=== PATIENT | female | born 1945 | race Caucasian/White ===

== ENCOUNTER 2016-08-22 11:19 | Inpatient (IN) | payer OTHER ==
[~2016-08-22] VITALS: Ht 167.6 cm; Wt 115.0 kg
[~2016-08-22 11:19] MED LIST: IBUP800T24 PO; LEVO25TA6 PO; LIS5T PO; MEDR5TAB PO; MET25T PO; PAR20T PO; PIO30T PO; PRA25T PO; Pantoprazole Sodium Sesquihydr PO; ROPI0.5T PO; SUC1LQ PO
[2016-08-22] MEDS ORDERED: SODIUM CHLORIDE 0.9% 1,000 ML IV ONE (16:57)
[2016-08-22 17:50] LABS: Basophils # (auto) 0.1 uL; Basophils % (auto) 0.6 % (0.0-2.0); DEFINITIVE VIEW TRANSMISSION; Eosinophils # (auto) 0.1 uL; Eosinophils % (auto) 1.3 % (0.0-7.0); Hematocrit 31.6 % (36.0-46.0); Hemoglobin 10.2 g/dL (12.2-16.2); Lymphocytes # (auto) 0.9 uL; Mean Corpuscular Hemoglobin 24.7 pg (28.0-32.0); Mean Corpuscular Hgb Conc. 32.3 g/dL (32.0-36.0); Mean Corpuscular Volume 76.6 fL (80.0-100.0); Mean Platelet Volume 8.1 fL (7.4-10.4); Monocytes # (auto) 0.5 uL; Neutrophils # (auto) 7.5 uL; Neutrophils % (auto) 82.1 % (37.0-80.0); Platelet Count (auto) 430 10^3/uL (140-450); Red Cell Distribution Width 18.2 % (11.6-16.0); White Blood Cell 9.1 10^3/uL (4.4-10.8)
[2016-08-22 18:08] LABS: Partial Thromboplastin Time 35.7 sec (22.64-33.71)
[2016-08-22 18:10] LABS: Albumin 2.4 g/dL (3.4-5.0); BUN/Creatinine Ratio 14.1; Calcium 8.6 mg/dL (8.5-10.1); Potassium 3.1 mmol/L (3.5-5.1)
[2016-08-22 18:12] LABS: INR 1.25 (0.9-1.15); Prothrombin Time 12.9 sec (9.37-12.3)
[2016-08-22 18:13] LABS: Total Protein 6.9 g/dL (6.4-8.2)
[2016-08-22] MEDS ORDERED: POTASSIUM CHLORIDE 8 MEQ TAB PO ONE (19:00)
[2016-08-22] MEDS ORDERED: DEXTROSE (50%) 50ML SYRG IV PRN (19:00)
[2016-08-22] MEDS ORDERED: MORPHINE SULF INJ 2 MG/ML SYRINGE 1ML IV PRN ×2 (19:15)
[2016-08-22] MEDS ORDERED: NITROGLYCERIN 0.4 MG SL TAB SL PRN (19:15)
[2016-08-22] MEDS ORDERED: ACETAMINOPHEN 325 MG TAB PO PRN (19:15)
[2016-08-22] MEDS ORDERED: DOCUSATE SOD 100 MG CAP PO PRN (19:15)
[2016-08-22] MEDS ORDERED: CITALOPRAM HYDROBR 20 MG TAB PO ONE (19:30)
[2016-08-22] MEDS ORDERED: MULTIPLE VITAMIN TAB PO ONE (19:30)
[2016-08-22] MEDS ORDERED: LOSARTAN POTASSIUM 25 MG TAB PO ONE (19:30)
[2016-08-22] MEDS: ENOXAPARIN SOD 40 MG/0.4 ML SYRINGE SC SCH (20:34)
[2016-08-22 20:50] VITALS: BP 116/65
[2016-08-22] MEDS: HYDROcodone-ACET 5/325MG TAB PO PRN (20:57)
[2016-08-22 21:00] VITALS: BP 116/65
[2016-08-22] MEDS: Boost Glucose Control 8 Ounces PO SCH (22:00)
[2016-08-22] MEDS: SODIUM CHLOR 0.9% PF (SALINE LOCK) 10ML VIAL IV SCH (22:34)
[2016-08-22] MEDS: IBUPROFEN 600 MG TAB PO SCH (22:34)
[2016-08-22] MEDS: InsuLIN REG 1unit/0.01ml Soln (100units/ml) SC SCH (22:35)
[2016-08-22] MEDS: ACCU-CHEK COMFORT CURVE STRIP VI SCH (22:35)
[2016-08-22] MEDS: FAMOTIDINE 20 MG TAB PO SCH (22:35)
[2016-08-23] MEDS: HYDROcodone-ACET 5/325MG TAB PO PRN ×4 (05:16→21:32)
[2016-08-23] MEDS: IBUPROFEN 600 MG TAB PO SCH ×4 (05:31→21:40)
[2016-08-23] MEDS: SODIUM CHLOR 0.9% PF (SALINE LOCK) 10ML VIAL IV SCH ×3 (05:31→21:12)
[2016-08-23] MEDS: Boost Glucose Control 8 Ounces PO SCH ×4 (05:31→22:00)
[2016-08-23 05:41] VITALS: BP 99/42
[2016-08-23] MEDS: ACCU-CHEK COMFORT CURVE STRIP VI SCH ×4 (06:20→21:39)
[2016-08-23] MEDS: InsuLIN REG 1unit/0.01ml Soln (100units/ml) SC SCH ×4 (06:20→22:30)
[2016-08-23 06:39] LABS: Basophils # (auto) 0.1 uL; Basophils % (auto) 0.8 % (0.0-2.0); DEFINITIVE VIEW TRANSMISSION; Eosinophils # (auto) 0.2 uL; Eosinophils % (auto) 3.6 % (0.0-7.0); Hematocrit 27.5 % (36.0-46.0); Hemoglobin 9.2 g/dL (12.2-16.2); Lymphocytes # (auto) 0.7 uL; Lymphocytes % (auto) 10.6 % (10.0-50.0); Mean Corpuscular Hemoglobin 25.4 pg (28.0-32.0); Mean Corpuscular Hgb Conc. 33.4 g/dL (32.0-36.0); Mean Corpuscular Volume 76.1 fL (80.0-100.0); Mean Platelet Volume 8.1 fL (7.4-10.4); Monocytes # (auto) 0.5 uL; Monocytes % (auto) 7.2 % (0.0-12.0); Neutrophils % (auto) 77.8 % (37.0-80.0); Platelet Count (auto) 399 10^3/uL (140-450); Red Cell Distribution Width 18.2 % (11.6-16.0); White Blood Cell 6.5 10^3/uL (4.4-10.8)
[2016-08-23 07:26] LABS: Albumin 2.1 g/dL (3.4-5.0); BUN/Creatinine Ratio 17.6; Calcium 8.1 mg/dL (8.5-10.1)
[2016-08-23 07:29] LABS: Bilirubin, Total 0.5 mg/dL (0.2-1.0)
[2016-08-23 09:04] VITALS: BP 108/52
[2016-08-23] MEDS: LOSARTAN POTASSIUM 25 MG TAB PO SCH (10:00)
[2016-08-23] MEDS: CITALOPRAM HYDROBR 20 MG TAB PO SCH (10:32)
[2016-08-23] MEDS: MULTIPLE VITAMIN TAB PO SCH (10:34)
[2016-08-23] MEDS: FAMOTIDINE 20 MG TAB PO SCH ×2 (10:35→21:32)
[2016-08-23 12:00] VITALS: BP 106/60
[2016-08-23] MEDS ORDERED: POTASSIUM CHLORIDE 8 MEQ TAB PO ONE (13:30)
[2016-08-23] MEDS: ENOXAPARIN SOD 40 MG/0.4 ML SYRINGE SC SCH (17:46)
[2016-08-23 17:53] VITALS: BP_SYST 118; BP_SYST 121; BP_DIAS 50; BP_DIAS 52
[2016-08-23 18:36] VITALS: BP 116/56
[2016-08-23 19:25] LABS: BUN/Creatinine Ratio 12.4; Calcium 8.1 mg/dL (8.5-10.1)
[2016-08-23 22:00] VITALS: BP_SYST 104; BP_SYST 90; BP_DIAS 40; BP_DIAS 52
[2016-08-24 05:00] VITALS: BP_SYST 107; BP_SYST 88; BP_DIAS 44; BP_DIAS 55
[2016-08-24] MEDS: IBUPROFEN 600 MG TAB PO SCH ×4 (06:00→21:50)
[2016-08-24] MEDS: SODIUM CHLOR 0.9% PF (SALINE LOCK) 10ML VIAL IV SCH ×3 (06:00→21:51)
[2016-08-24] MEDS: Boost Glucose Control 8 Ounces PO SCH ×4 (06:00→21:51)
[2016-08-24] MEDS: ACCU-CHEK COMFORT CURVE STRIP VI SCH ×4 (07:00→22:00)
[2016-08-24] MEDS: InsuLIN REG 1unit/0.01ml Soln (100units/ml) SC SCH ×4 (07:00→21:54)
[2016-08-24 07:34] LABS: Basophils # (auto) 0 uL; Basophils % (auto) 0.5 % (0.0-2.0); DEFINITIVE VIEW TRANSMISSION; Eosinophils # (auto) 0.3 uL; Eosinophils % (auto) 4.6 % (0.0-7.0); Hematocrit 29.2 % (36.0-46.0); Hemoglobin 9.5 g/dL (12.2-16.2); Lymphocytes # (auto) 0.9 uL; Mean Corpuscular Hemoglobin 24.7 pg (28.0-32.0); Mean Corpuscular Hgb Conc. 32.5 g/dL (32.0-36.0); Mean Platelet Volume 8.3 fL (7.4-10.4); Monocytes # (auto) 0.6 uL; Monocytes % (auto) 8.4 % (0.0-12.0); Neutrophils # (auto) 4.8 uL; Neutrophils % (auto) 72.5 % (37.0-80.0); Platelet Count (auto) 393 10^3/uL (140-450); Red Cell Distribution Width 18.3 % (11.6-16.0); White Blood Cell 6.6 10^3/uL (4.4-10.8)
[2016-08-24 07:44] LABS: Albumin 2.2 g/dL (3.4-5.0); BUN/Creatinine Ratio 12.8; Calcium 8.2 mg/dL (8.5-10.1)
[2016-08-24 07:47] LABS: Bilirubin, Total 0.4 mg/dL (0.2-1.0); Total Protein 6.4 g/dL (6.4-8.2)
[2016-08-24 09:00] VITALS: BP 131/53
[2016-08-24] MEDS: ONDANSETRON HCL 4 MG/2 ML VIAL IV PRN (09:12)
[2016-08-24] MEDS: CITALOPRAM HYDROBR 20 MG TAB PO SCH (09:13)
[2016-08-24] MEDS: LOSARTAN POTASSIUM 25 MG TAB PO SCH (09:13)
[2016-08-24] MEDS: FAMOTIDINE 20 MG TAB PO SCH ×2 (09:13→21:50)
[2016-08-24] MEDS: MULTIPLE VITAMIN TAB PO SCH (09:24)
[2016-08-24] MEDS: HYDROcodone-ACET 5/325MG TAB PO PRN ×3 (11:19→21:49)
[2016-08-24 13:00] VITALS: BP_SYST 107; BP_SYST 137; BP_SYST 99; BP_DIAS 38; BP_DIAS 45; BP_DIAS 69
[2016-08-24] MEDS ORDERED: IOHEXOL 300 MG/ML 100ML BOTTLE IJ ONE (15:23)
[2016-08-24] MEDS ORDERED: POTASSIUM CHL 20 Meq TABLET PO ONE (16:45)
[2016-08-24 17:18] LABS: Urine RBC None Seen /hpf (0 - 4)
[2016-08-24] MEDS: PIOGLITAZONE HYDROCHLORIDE 30 MG TAB PO SCH (17:18)
[2016-08-24 17:21] VITALS: BP 104/51
[2016-08-24 17:43] LABS: Urine Bilirubin Negative (Negative); Urine Color Yellow (Yellow); Urine Glucose Normal (Normal); Urine Hyaline Cast FEW /lpf (0 - 2); Urine Ketone Negative (Negative); Urine Mucus FEW (None Seen); Urine Nitrite Negative (Negative); Urine Squamous Epithelial Cell FEW /hpf (<5)
[2016-08-24 17:55] LABS: Urine Blood 1+ /uL (Negative)
[2016-08-24] MEDS: ENOXAPARIN SOD 40 MG/0.4 ML SYRINGE SC SCH (18:47)
[2016-08-24] MEDS: PRAMIPEXOLE DIHYDROCHLORIDE MO 0.25 MG TAB PO SCH (21:50)
[2016-08-24 22:00] VITALS: BP 96/46
[2016-08-25] MEDS: SODIUM CHLOR 0.9% PF (SALINE LOCK) 10ML VIAL IV SCH ×3 (06:00→22:00)
[2016-08-25] MEDS: IBUPROFEN 600 MG TAB PO SCH ×4 (06:00→21:14)
[2016-08-25] MEDS: Boost Glucose Control 8 Ounces PO SCH ×4 (06:00→22:00)
[2016-08-25 06:08] VITALS: BP 116/50
[2016-08-25] MEDS: InsuLIN REG 1unit/0.01ml Soln (100units/ml) SC SCH ×4 (06:34→21:33)
[2016-08-25] MEDS: ACCU-CHEK COMFORT CURVE STRIP VI SCH ×4 (06:36→22:00)
[2016-08-25 06:40] LABS: Basophils # (auto) 0.1 uL; Basophils % (auto) 1.9 % (0.0-2.0); DEFINITIVE VIEW TRANSMISSION; Eosinophils # (auto) 0.3 uL; Eosinophils % (auto) 4.1 % (0.0-7.0); Hematocrit 29.9 % (36.0-46.0); Hemoglobin 9.5 g/dL (12.2-16.2); Lymphocytes # (auto) 0.9 uL; Lymphocytes % (auto) 14.5 % (10.0-50.0); Mean Corpuscular Hemoglobin 24.5 pg (28.0-32.0); Mean Corpuscular Hgb Conc. 31.9 g/dL (32.0-36.0); Mean Corpuscular Volume 76.7 fL (80.0-100.0); Mean Platelet Volume 8.1 fL (7.4-10.4); Monocytes # (auto) 0.5 uL; Neutrophils # (auto) 4.5 uL; Neutrophils % (auto) 71.5 % (37.0-80.0); Platelet Count (auto) 399 10^3/uL (140-450); Red Cell Distribution Width 18.5 % (11.6-16.0); White Blood Cell 6.3 10^3/uL (4.4-10.8)
[2016-08-25 07:07] LABS: Albumin 2.1 g/dL (3.4-5.0); BUN/Creatinine Ratio 10.5; Calcium 8.2 mg/dL (8.5-10.1); Potassium 3.4 mmol/L (3.5-5.1)
[2016-08-25 07:10] LABS: Bilirubin, Total 0.3 mg/dL (0.2-1.0); Total Protein 6.1 g/dL (6.4-8.2)
[2016-08-25 09:06] VITALS: BP 113/61
[2016-08-25] MEDS: LOSARTAN POTASSIUM 25 MG TAB PO SCH (09:52)
[2016-08-25] MEDS: CITALOPRAM HYDROBR 20 MG TAB PO SCH (09:52)
[2016-08-25] MEDS: FAMOTIDINE 20 MG TAB PO SCH ×2 (09:53→21:14)
[2016-08-25] MEDS: MULTIPLE VITAMIN TAB PO SCH (09:53)
[2016-08-25] MEDS: PIOGLITAZONE HYDROCHLORIDE 30 MG TAB PO SCH (10:00)
[2016-08-25] MEDS ORDERED: POTASSIUM CHL 10 Meq TABLET PO ONE (10:30)
[2016-08-25] MEDS: HYDROcodone-ACET 5/325MG TAB PO PRN ×2 (10:49→19:45)
[2016-08-25 12:30] VITALS: BP 108/43
[2016-08-25] MEDS ORDERED: MIDAZOLAM HCL 1MG/1ML-2 ML VIAL ONE (13:38)
[2016-08-25] MEDS ORDERED: fentaNYL CITRATE 100 MCG/2 ML VL ONE (13:38)
[2016-08-25] MEDS ORDERED: LIDOCAINE 2%HCL (LOCAL ANESTH.) INJ 20ML MDV ONE (13:47)
[2016-08-25 16:56] VITALS: BP 125/68
[2016-08-25] MEDS: ENOXAPARIN SOD 40 MG/0.4 ML SYRINGE SC SCH (17:37)
[2016-08-25] MEDS: PRAMIPEXOLE DIHYDROCHLORIDE MO 0.25 MG TAB PO SCH (21:14)
[2016-08-25] MEDS: TEMAZEPAM 15 MG CAP PO PRN (21:14)
[2016-08-25 21:26] VITALS: BP 123/62
[2016-08-26 05:00] VITALS: BP 144/58
[2016-08-26] MEDS: SODIUM CHLOR 0.9% PF (SALINE LOCK) 10ML VIAL IV SCH ×3 (06:00→20:51)
[2016-08-26] MEDS: Boost Glucose Control 8 Ounces PO SCH ×4 (06:00→20:47)
[2016-08-26 06:29] LABS: Basophils # (auto) 0.1 uL; Basophils % (auto) 0.8 % (0.0-2.0); DEFINITIVE VIEW TRANSMISSION; Eosinophils # (auto) 0.3 uL; Eosinophils % (auto) 4.9 % (0.0-7.0); Hematocrit 31.9 % (36.0-46.0); Hemoglobin 10.2 g/dL (12.2-16.2); Lymphocytes # (auto) 0.8 uL; Mean Corpuscular Hgb Conc. 31.9 g/dL (32.0-36.0); Mean Corpuscular Volume 78.2 fL (80.0-100.0); Mean Platelet Volume 7.6 fL (7.4-10.4); Monocytes # (auto) 0.5 uL; Neutrophils # (auto) 4.4 uL; Neutrophils % (auto) 72.3 % (37.0-80.0); Platelet Count (auto) 394 10^3/uL (140-450); Red Cell Distribution Width 18.5 % (11.6-16.0); White Blood Cell 6.1 10^3/uL (4.4-10.8)
[2016-08-26] MEDS: IBUPROFEN 600 MG TAB PO SCH ×4 (06:33→22:00)
[2016-08-26 06:50] LABS: Albumin 2.2 g/dL (3.4-5.0); BUN/Creatinine Ratio 12.7; Calcium 8.4 mg/dL (8.5-10.1); Potassium 3.4 mmol/L (3.5-5.1)
[2016-08-26 06:53] LABS: Bilirubin, Total 0.4 mg/dL (0.2-1.0); Total Protein 6.4 g/dL (6.4-8.2)
[2016-08-26] MEDS: InsuLIN REG 1unit/0.01ml Soln (100units/ml) SC SCH ×4 (07:00→21:56)
[2016-08-26] MEDS: ACCU-CHEK COMFORT CURVE STRIP VI SCH ×4 (07:05→20:50)
[2016-08-26 09:00] VITALS: BP 136/60
[2016-08-26] MEDS: LOSARTAN POTASSIUM 25 MG TAB PO SCH (09:31)
[2016-08-26] MEDS: FAMOTIDINE 20 MG TAB PO SCH (09:31)
[2016-08-26] MEDS: MULTIPLE VITAMIN TAB PO SCH (09:31)
[2016-08-26] MEDS: CITALOPRAM HYDROBR 20 MG TAB PO SCH (09:31)
[2016-08-26] MEDS: PIOGLITAZONE HYDROCHLORIDE 30 MG TAB PO SCH (09:40)
[2016-08-26] MEDS: SOD CHL 0.45% 1,000 ML IV SCH (12:19)
[2016-08-26 12:45] VITALS: BP 113/53
[2016-08-26 16:36] VITALS: BP 128/54
[2016-08-26] MEDS: PRO-STAT 64 30ML PO SCH (18:00)
[2016-08-26] MEDS: ENOXAPARIN SOD 40 MG/0.4 ML SYRINGE SC SCH (19:14)
[2016-08-26] MEDS: HYDROcodone-ACET 5/325MG TAB PO PRN (20:42)
[2016-08-26] MEDS: PRAMIPEXOLE DIHYDROCHLORIDE MO 0.25 MG TAB PO SCH (20:47)
[2016-08-26 21:27] VITALS: BP 129/56
[2016-08-27] MEDS: SOD CHL 0.45% 1,000 ML IV SCH ×2 (01:50→18:40)
[2016-08-27 04:55] VITALS: BP 110/55
[2016-08-27] MEDS: IBUPROFEN 600 MG TAB PO SCH ×4 (05:01→21:21)
[2016-08-27] MEDS: Boost Glucose Control 8 Ounces PO SCH ×4 (06:00→21:27)
[2016-08-27] MEDS: SODIUM CHLOR 0.9% PF (SALINE LOCK) 10ML VIAL IV SCH ×3 (06:18→21:27)
[2016-08-27] MEDS: InsuLIN REG 1unit/0.01ml Soln (100units/ml) SC SCH ×4 (06:18→21:04)
[2016-08-27] MEDS: ACCU-CHEK COMFORT CURVE STRIP VI SCH ×4 (06:19→21:04)
[2016-08-27 06:42] LABS: Basophils # (auto) 0.1 uL; Basophils % (auto) 1.2 % (0.0-2.0); DEFINITIVE VIEW TRANSMISSION; Eosinophils # (auto) 0.3 uL; Eosinophils % (auto) 4.9 % (0.0-7.0); Hematocrit 33.2 % (36.0-46.0); Hemoglobin 10.9 g/dL (12.2-16.2); Lymphocytes # (auto) 0.8 uL; Lymphocytes % (auto) 13.6 % (10.0-50.0); Mean Corpuscular Hgb Conc. 32.8 g/dL (32.0-36.0); Mean Corpuscular Volume 76.1 fL (80.0-100.0); Mean Platelet Volume 7.7 fL (7.4-10.4); Monocytes # (auto) 0.3 uL; Monocytes % (auto) 4.7 % (0.0-12.0); Neutrophils # (auto) 4.7 uL; Neutrophils % (auto) 75.6 % (37.0-80.0); Platelet Count (auto) 419 10^3/uL (140-450); Red Cell Distribution Width 18.8 % (11.6-16.0); White Blood Cell 6.2 10^3/uL (4.4-10.8)
[2016-08-27 06:58] LABS: Albumin 2.5 g/dL (3.4-5.0); BUN/Creatinine Ratio 8.2; Calcium 8.1 mg/dL (8.5-10.1); Potassium 3.6 mmol/L (3.5-5.1)
[2016-08-27 07:01] LABS: Bilirubin, Total 0.5 mg/dL (0.2-1.0); Total Protein 6.6 g/dL (6.4-8.2)
[2016-08-27 08:00] VITALS: BP 120/47
[2016-08-27] MEDS: MULTIPLE VITAMIN TAB PO SCH (10:00)
[2016-08-27] MEDS: PIOGLITAZONE HYDROCHLORIDE 30 MG TAB PO SCH (10:29)
[2016-08-27] MEDS: LOSARTAN POTASSIUM 25 MG TAB PO SCH (10:30)
[2016-08-27] MEDS: CITALOPRAM HYDROBR 20 MG TAB PO SCH (10:32)
[2016-08-27] MEDS: FAMOTIDINE 20 MG TAB PO SCH (10:32)
[2016-08-27] MEDS: HYDROcodone-ACET 5/325MG TAB PO PRN ×2 (10:37→22:53)
[2016-08-27] MEDS: PRO-STAT 64 30ML PO SCH ×2 (10:39→18:40)
[2016-08-27 12:30] VITALS: BP 153/55
[2016-08-27 17:00] VITALS: BP 111/43
[2016-08-27] MEDS: ENOXAPARIN SOD 40 MG/0.4 ML SYRINGE SC SCH (17:47)
[2016-08-27] MEDS: PRAMIPEXOLE DIHYDROCHLORIDE MO 0.25 MG TAB PO SCH (21:15)
[2016-08-27 22:00] VITALS: BP 138/68
[2016-08-28] MEDS: SOD CHL 0.45% 1,000 ML IV SCH (04:15)
[2016-08-28 05:00] VITALS: BP 145/62
[2016-08-28] MEDS: Boost Glucose Control 8 Ounces PO SCH ×4 (06:00→21:13)
[2016-08-28] MEDS: InsuLIN REG 1unit/0.01ml Soln (100units/ml) SC SCH ×4 (06:20→21:24)
[2016-08-28] MEDS: ACCU-CHEK COMFORT CURVE STRIP VI SCH ×4 (06:20→21:13)
[2016-08-28] MEDS: SODIUM CHLOR 0.9% PF (SALINE LOCK) 10ML VIAL IV SCH ×3 (06:24→21:13)
[2016-08-28] MEDS: IBUPROFEN 600 MG TAB PO SCH ×4 (06:36→21:07)
[2016-08-28] MEDS: PRO-STAT 64 30ML PO SCH ×2 (08:00→18:00)
[2016-08-28 09:00] VITALS: BP 138/68
[2016-08-28] MEDS: MULTIPLE VITAMIN TAB PO SCH ×2 (09:52→09:58)
[2016-08-28] MEDS: LOSARTAN POTASSIUM 25 MG TAB PO SCH (09:52)
[2016-08-28] MEDS: FAMOTIDINE 20 MG TAB PO SCH (09:53)
[2016-08-28] MEDS: CITALOPRAM HYDROBR 20 MG TAB PO SCH (09:53)
[2016-08-28] MEDS: PIOGLITAZONE HYDROCHLORIDE 30 MG TAB PO SCH (09:55)
[2016-08-28 13:00] VITALS: BP 146/71
[2016-08-28 17:00] VITALS: BP 145/61
[2016-08-28] MEDS: ENOXAPARIN SOD 40 MG/0.4 ML SYRINGE SC SCH (17:46)
[2016-08-28] MEDS: PRAMIPEXOLE DIHYDROCHLORIDE MO 0.25 MG TAB PO SCH (21:11)
[2016-08-28 22:00] VITALS: BP 136/61
[2016-08-28] MEDS: HYDROcodone-ACET 5/325MG TAB PO PRN (22:12)
[2016-08-29 05:13] VITALS: BP 146/50
[2016-08-29] MEDS: SODIUM CHLOR 0.9% PF (SALINE LOCK) 10ML VIAL IV SCH ×3 (05:50→21:47)
[2016-08-29] MEDS: IBUPROFEN 600 MG TAB PO SCH ×4 (05:51→21:47)
[2016-08-29] MEDS: ACCU-CHEK COMFORT CURVE STRIP VI SCH ×4 (05:51→21:49)
[2016-08-29] MEDS: InsuLIN REG 1unit/0.01ml Soln (100units/ml) SC SCH ×4 (05:59→21:55)
[2016-08-29] MEDS: Boost Glucose Control 8 Ounces PO SCH ×4 (05:59→21:47)
[2016-08-29] MEDS: PRO-STAT 64 30ML PO SCH ×2 (08:00→17:28)
[2016-08-29 09:01] VITALS: BP 140/69
[2016-08-29] MEDS: PIOGLITAZONE HYDROCHLORIDE 30 MG TAB PO SCH (09:37)
[2016-08-29] MEDS: MULTIPLE VITAMIN TAB PO SCH (09:37)
[2016-08-29] MEDS: HYDROcodone-ACET 5/325MG TAB PO PRN (09:38)
[2016-08-29] MEDS: FAMOTIDINE 20 MG TAB PO SCH (09:38)
[2016-08-29] MEDS: LOSARTAN POTASSIUM 25 MG TAB PO SCH (09:39)
[2016-08-29] MEDS: CITALOPRAM HYDROBR 20 MG TAB PO SCH (09:40)
[2016-08-29 12:30] VITALS: BP 129/64
[2016-08-29 17:06] VITALS: BP 141/54
[2016-08-29] MEDS: ENOXAPARIN SOD 40 MG/0.4 ML SYRINGE SC SCH (17:28)
[2016-08-29] MEDS: PRAMIPEXOLE DIHYDROCHLORIDE MO 0.25 MG TAB PO SCH (21:47)
[2016-08-29] MEDS: TEMAZEPAM 15 MG CAP PO PRN (21:47)
[2016-08-29 22:00] VITALS: BP 116/69
[2016-08-30 05:00] VITALS: BP 137/57
[2016-08-30] MEDS: IBUPROFEN 600 MG TAB PO SCH ×4 (06:00→22:03)
[2016-08-30] MEDS: Boost Glucose Control 8 Ounces PO SCH ×4 (06:00→22:06)
[2016-08-30] MEDS: SODIUM CHLOR 0.9% PF (SALINE LOCK) 10ML VIAL IV SCH ×3 (06:06→22:06)
[2016-08-30] MEDS: ACCU-CHEK COMFORT CURVE STRIP VI SCH ×4 (06:09→22:05)
[2016-08-30] MEDS: InsuLIN REG 1unit/0.01ml Soln (100units/ml) SC SCH ×4 (06:10→22:01)
[2016-08-30] MEDS: PRO-STAT 64 30ML PO SCH ×2 (08:00→17:30)
[2016-08-30 09:00] VITALS: BP 153/66
[2016-08-30] MEDS: FAMOTIDINE 20 MG TAB PO SCH (09:37)
[2016-08-30] MEDS: CITALOPRAM HYDROBR 20 MG TAB PO SCH (09:37)
[2016-08-30] MEDS: LOSARTAN POTASSIUM 25 MG TAB PO SCH (09:38)
[2016-08-30] MEDS: PIOGLITAZONE HYDROCHLORIDE 30 MG TAB PO SCH (09:42)
[2016-08-30] MEDS: MULTIPLE VITAMIN TAB PO SCH (09:42)
[2016-08-30] MEDS ORDERED: TEMAZEPAM 15 MG CAP PO PRN (11:00)
[2016-08-30] MEDS ORDERED: MORPHINE SULF INJ 2 MG/ML SYRINGE 1ML IV PRN ×2 (11:00)
[2016-08-30 13:00] VITALS: BP 120/66
[2016-08-30] MEDS: HYDROcodone-ACET 5/325MG TAB PO PRN (14:23)
[2016-08-30 17:00] VITALS: BP 120/58
[2016-08-30] MEDS: ENOXAPARIN SOD 40 MG/0.4 ML SYRINGE SC SCH (17:30)
[2016-08-30 22:00] VITALS: BP 113/51
[2016-08-30] MEDS: PRAMIPEXOLE DIHYDROCHLORIDE MO 0.25 MG TAB PO SCH (22:02)
[2016-08-31 05:00] VITALS: BP 139/66
[2016-08-31] MEDS: SODIUM CHLOR 0.9% PF (SALINE LOCK) 10ML VIAL IV SCH ×3 (05:19→21:17)
[2016-08-31] MEDS: IBUPROFEN 600 MG TAB PO SCH ×4 (05:25→21:17)
[2016-08-31] MEDS: Boost Glucose Control 8 Ounces PO SCH ×4 (06:00→22:00)
[2016-08-31] MEDS: ACCU-CHEK COMFORT CURVE STRIP VI SCH ×4 (06:29→21:27)
[2016-08-31] MEDS: InsuLIN REG 1unit/0.01ml Soln (100units/ml) SC SCH ×4 (06:30→21:48)
[2016-08-31] MEDS: PRO-STAT 64 30ML PO SCH ×2 (08:00→17:49)
[2016-08-31 09:00] VITALS: BP 128/48
[2016-08-31] MEDS: MULTIPLE VITAMIN TAB PO SCH (10:00)
[2016-08-31] MEDS: FAMOTIDINE 20 MG TAB PO SCH (10:00)
[2016-08-31] MEDS: LOSARTAN POTASSIUM 25 MG TAB PO SCH (10:38)
[2016-08-31] MEDS: HYDROcodone-ACET 5/325MG TAB PO PRN ×2 (10:39→17:48)
[2016-08-31] MEDS: CITALOPRAM HYDROBR 20 MG TAB PO SCH (10:40)
[2016-08-31] MEDS: PIOGLITAZONE HYDROCHLORIDE 30 MG TAB PO SCH (10:44)
[2016-08-31 13:29] VITALS: BP 140/72
[2016-08-31 17:00] VITALS: BP 127/59
[2016-08-31] MEDS: ONDANSETRON HCL 4 MG/2 ML VIAL IV PRN (17:45)
[2016-08-31] MEDS: ENOXAPARIN SOD 40 MG/0.4 ML SYRINGE SC SCH (17:53)
[2016-08-31] MEDS: PRAMIPEXOLE DIHYDROCHLORIDE MO 0.25 MG TAB PO SCH (21:17)
[2016-08-31 22:00] VITALS: BP 113/51
[2016-09-01] VITALS (7 sets, daily range): BP systolic 90–140; BP diastolic 30–88
[2016-09-01] MEDS: IBUPROFEN 600 MG TAB PO SCH ×2 (06:00→12:07)
[2016-09-01] MEDS: ACCU-CHEK COMFORT CURVE STRIP VI SCH ×4 (06:16→22:00)
[2016-09-01] MEDS: InsuLIN REG 1unit/0.01ml Soln (100units/ml) SC SCH ×4 (06:17→22:00)
[2016-09-01] MEDS: SODIUM CHLOR 0.9% PF (SALINE LOCK) 10ML VIAL IV SCH ×3 (06:18→21:28)
[2016-09-01] MEDS: FAMOTIDINE 20 MG TAB PO SCH (09:25)
[2016-09-01] MEDS: CITALOPRAM HYDROBR 20 MG TAB PO SCH (09:26)
[2016-09-01] MEDS: HYDROcodone-ACET 5/325MG TAB PO PRN (09:26)
[2016-09-01] MEDS: PIOGLITAZONE HYDROCHLORIDE 30 MG TAB PO SCH (09:27)
[2016-09-01] MEDS: LOSARTAN POTASSIUM 25 MG TAB PO SCH (09:28)
[2016-09-01] MEDS: Boost Glucose Control 8 Ounces PO SCH ×4 (09:30→21:28)
[2016-09-01] MEDS: PRO-STAT 64 30ML PO SCH ×2 (09:30→17:55)
[2016-09-01] MEDS: MULTIPLE VITAMIN TAB PO SCH (09:50)
[2016-09-01] MEDS ORDERED: SODIUM CHLORIDE 0.9% 1,000 ML IV ONE (10:15)
[2016-09-01 10:34] LABS: BUN/Creatinine Ratio 13.5; Calcium 8.4 mg/dL (8.5-10.1); Potassium 3.6 mmol/L (3.5-5.1)
[2016-09-01] MEDS ORDERED: IBUPROFEN 600 MG TAB PO PRN (12:00)
[2016-09-01] MEDS: ENOXAPARIN SOD 40 MG/0.4 ML SYRINGE SC SCH (17:55)
[2016-09-01] MEDS: PRAMIPEXOLE DIHYDROCHLORIDE MO 0.25 MG TAB PO SCH (21:28)
[2016-09-02 05:11] VITALS: BP 100/45
[2016-09-02] MEDS: Boost Glucose Control 8 Ounces PO SCH (06:00)
[2016-09-02] MEDS: InsuLIN REG 1unit/0.01ml Soln (100units/ml) SC SCH (06:00)
[2016-09-02] MEDS: SODIUM CHLOR 0.9% PF (SALINE LOCK) 10ML VIAL IV SCH (06:00)
[2016-09-02] MEDS: ACCU-CHEK COMFORT CURVE STRIP VI SCH (06:00)
[2016-09-02] MEDS: PRO-STAT 64 30ML PO SCH (08:30)
[2016-09-02 09:00] VITALS: BP 95/39
[2016-09-02] MEDS: LOSARTAN POTASSIUM 25 MG TAB PO SCH (10:00)
[2016-09-02] MEDS: FAMOTIDINE 20 MG TAB PO SCH (10:29)
[2016-09-02] MEDS: PIOGLITAZONE HYDROCHLORIDE 30 MG TAB PO SCH (10:29)
[2016-09-02] MEDS: MULTIPLE VITAMIN TAB PO SCH (10:30)
[2016-09-02] MEDS: CITALOPRAM HYDROBR 20 MG TAB PO SCH (10:30)
[2016-09-02] MEDS: HYDROcodone-ACET 5/325MG TAB PO PRN (10:31)
[2016-09-02 13:00] VITALS: BP 88/65
[2016-09-02 13:49] VITALS: BP 95/39
== END 2016-09-02 15:45 | disposition hospice, home (50) | DRG 435 ==
LOC: ER 11:19 → EDBD 11:19 → EDUNIT# 11:19 → TELE 11:20 → TELE-EAST 20:43 → EAST 08-26 11:48
PROVIDERS: ADMIT Internal Medicine; ATTEND Internal Medicine
PROC: 0FB13ZX Excision of Right Lobe Liver, Percutaneous Approach, Diagnostic (ICD-10-PCS; principal; 2016-08-26)
PROC: BF251ZZ Computerized Tomography (CT Scan) of Liver using Low Osmolar Contrast (ICD-10-PCS; 2016-08-26)
DX: C78.7 Secondary malignant neoplasm of liver and intrahepatic bile duct (principal); E43 Unspecified severe protein-calorie malnutrition; E87.1 Hypo-osmolality and hyponatremia; D68.9 Coagulation defect, unspecified; C34.92 Malignant neoplasm of unspecified part of left bronchus or lung; Z68.41 Body mass index [BMI] 40.0-44.9, adult; S09.90XA Unspecified injury of head, initial encounter; K57.30 Diverticulosis of large intestine without perforation or abscess without bleeding; G25.81 Restless legs syndrome; E87.6 Hypokalemia; E11.22 Type 2 diabetes mellitus with diabetic chronic kidney disease; E11.21 Type 2 diabetes mellitus with diabetic nephropathy; D63.8 Anemia in other chronic diseases classified elsewhere; E66.01 Morbid (severe) obesity due to excess calories; K76.9 Liver disease, unspecified; F32.9 Major depressive disorder, single episode, unspecified; I12.9 Hypertensive chronic kidney disease with stage 1 through stage 4 chronic kidney disease, or unspecified chronic kidney disease; I70.8 Atherosclerosis of other arteries; K40.90 Unilateral inguinal hernia, without obstruction or gangrene, not specified as recurrent; N18.2 Chronic kidney disease, stage 2 (mild); K44.9 Diaphragmatic hernia without obstruction or gangrene; D50.9 Iron deficiency anemia, unspecified; E11.65 Type 2 diabetes mellitus with hyperglycemia; E55.9 Vitamin D deficiency, unspecified; M17.0 Bilateral primary osteoarthritis of knee; M25.862 Other specified joint disorders, left knee; Z66 Do not resuscitate; W18.12XA Fall from or off toilet with subsequent striking against object, initial encounter; Z96.651 Presence of right artificial knee joint; R26.9 Unspecified abnormalities of gait and mobility; R16.0 Hepatomegaly, not elsewhere classified; Z88.2 Allergy status to sulfonamides; Z88.1 Allergy status to other antibiotic agents; Z81.8 Family history of other mental and behavioral disorders; Z88.0 Allergy status to penicillin; Y93.89 Activity, other specified; Y92.091 Bathroom in other non-institutional residence as the place of occurrence of the external cause; Y99.8 Other external cause status
CPT/HCPCS: 10022; 36415; 70450; 73502; 73562; 73700; 74176; 74177; 77012; 78306; 80048; 80053; 81001; 82962; 83036; 85025; 85610; 85652; 85730; 87081; 87086; 87088; 87186; 92610; 93306; 93886; 95819; 96360; 97001; 97116; 97530; J1815; J2250; J2405